=== PATIENT | male | born 1995 | race Caucasian/White ===

== ENCOUNTER 2025-03-11 17:53 | Emergency (ER) | payer BC, SELFPAY ==
[2025-03-11 17:55] VITALS: BP 168/105
[2025-03-11 18:12] LABS: Hematocrit 42.1 % (39.0-52.0); Hemoglobin 14.8 g/dL (13.0-18.0); Mean Corp Hgb Conc. 35.2 g/dL (33.0-37.0); Mean Corpuscular Volume 90.7 fL (80.0-94.0); Nucleated Red Blood Cells % 0 % (-); Platelet Count 274 10^3/uL (130-400); Red Cell Dist. Width 12.1 % (11.5-14.5)
[2025-03-11 18:35] LABS: ALT (SGPT) 37 U/L (0-50); AST (SGOT) 33 U/L (17-59); Albumin 5.1 g/dl (3.5-5.0); Alkaline Phosphatase 50 U/L (38-126); Blood Urea Nitrogen 21 mg/dl (9-20); Calcium 10.0 mg/dl (8.4-10.2); Carbon Dioxide 28 mmol/L (22-30); Chloride 103 mmol/L (98-107); Glucose 101 mg/dl (70-99); Potassium 4.4 mmol/L (3.5-5.1); Sodium 140 mmol/L (135-145); Total Protein 7.9 g/dl (6.3-8.2); eGFR > 60.00
[2025-03-11 18:39] VITALS: BP 144/81
[2025-03-11 18:44] VITALS: BMI 24.3
[2025-03-11 18:45] LABS: Troponin I < 0.012 ng/ml
--- NOTE | 2025-03-11 18:56 | ED.GENMED ---
History of Present Illness
General
Chief Complaint: Heart Rate Problem
Source: patient
Exam Limitations: none
Time Seen by Provider: 03/11/25 18:50
History of Present Illness
History of Present Illness:
29yoM with no significant past medical history presenting for evaluation of palpitations. Patient reports intermittent palpitations over the past 2 months. His palpitations seem to be worse when he is stressed. He is currently completing
prerequisite courses and is planning to attend nursing school. He has checked his smart watch while he has been symptomatic and it has always indicated normal sinus rhythm. He denies any associated chest pain, shortness of breath, dizziness,
syncope, leg swelling. Patient is currently training for a half marathon. He denies any symptoms with activity. He drinks 1 to 2 cups of coffee a day and drinks alcohol socially. He denies any family history of heart disease. He has never seen
a supervisor fine grading before.
Phy Exam
General Physical Exam
General Presentation: well appearing and no apparent distress
General Skin: warm and dry
General Habitus: normal
General Mental: alert
ENT Exam
ENT Exam: normocephalic
Cardiovascular Exam
Cardiovascular Exam: no edema, no murmur, normal peripheral pulses and tachycardia
Pulmonary Exam
Pulmonary Exam: lungs clear, no respiratory distress, no rales, no crackles, no rhonchi and no wheezing
Neurological Exam
Neurological Exam: alert
July Coma Scale
Eye Opening: Spontaneous
Verbal Response: Oriented
Motor Response: Obeys Commands
GCS Total Score: 15
Skin Exam
Skin Exam: normal color and warm/dry
Psychiatric Exam
Psychiatric Exam: normal mood/affect
Course
Orders/Labs/Results
Orders:
Orders
03/11/25 17:54
Electrocardiogram (*1) Urgent
Reason for Study: Chest Pain
EKG- Treatment ONCE
03/11/25 18:06
Complete Blood Count/With Diff Urgent
Comprehensive Metabolic Panel Urgent
TSH Reflex To Free T4 Urgent
Troponin I Urgent
Abnormal Lab Results
03/11/25
18:06
RBC 4.64 L 10^6/uL
(4.70-6.10)
MCH 31.9 H pg
(27.0-31.0)
BUN 21 H mg/dl
(9-20)
Glucose 101 H mg/dl
(70-99)
Albumin 5.1 H g/dl
(3.5-5.0)
03/11/25 18:06
03/11/25 18:06
Vital Signs
Initial and Last Documented VS:
Initial Vital Signs
Temp Pulse Resp BP Pulse Ox
98.4 F 103 18 168/105 100
03/11/25 17:55 03/11/25 17:55 03/11/25 17:55 03/11/25 17:55 03/11/25 17:55
Last Documented Vital Signs
Temp Pulse Resp BP Pulse Ox
98.5 F 91 13 141/81 100
03/11/25 18:44 03/11/25 19:34 03/11/25 19:34 03/11/25 19:34 03/11/25 18:56
MDM/Problems Addressed
Differential Diagnosis Includes:
29yoM here with palpitations x 2 months that are worse with stress. Denies CP/SOB. HR 103 in triage. He is well appearing in no distress. HR increased to 110-120 while we were speaking which improved to the 90s when I was out of the room. Sinus
rhythm on the monitor. Exam reassuring. Differential diagnosis includes but is not limited to: arrhythmia, thyroid dysfunction, electrolyte abnormality, doubt PE
Labs obtained in triage. Electrolytes, hemoglobin, TSH within normal limits. EKG confirms sinus tachycardia without ectopy and troponin WNL. No telemetry events during ED stay. No indication for hospitalization. He has an appt scheduled with his PCP
next week and was advised to discuss outpatient Holter monitor. He was discharged in stable condition.
*Pulse Oximetry
SaO2: 100
Oxygen Mode of Delivery: Room air
Patient hypoxic: no (100%)
*EKG
Interpreted by ED Provider?: Yes
EKG Intrepretation Date: 03/11/25
Heart Rate: 109
Rate: tachycardiac
Rhythm: sinus
[place]: normal axis
Interval: normal interval
QRS Pattern: normal QRS
Ischemia: non-specific ST changes
*Critical Care Note
Total Time (30-74mins, 75-104mins- exclusive of procedures): Not Applicable
ED Attending Note
-
Portions of this chart may have been created with voice recognition software.� Occasional wrong word or��sound alike� substitutions may have occurred due to the inherent limitations of voice recognition software.
Discharge Plan
Departure
Patient Disposition: Home (Routine Discharge)
Date of Disposition: 03/11/25
Time of Disposition: 19:31
Patient with high blood pressure during this ER visit?: Yes
Discharge Problem:
Palpitations, Sinus tachycardia
Instructions: Palpitations (DC)
Referrals:
Mike Kitchen DO [Family Provider, Family Practice]
Activity Restrictions/Additional Instructions:
Please follow-up with your family doctor next week as previously scheduled and discuss outpatient Holter monitor.
Return to the ER with any new or worsening symptoms.
Interventions
Interventions:
*Risk Screen - Suicide Last Done: 03/11/25 17:55
*General Assessment Last Done: 03/11/25 17:55
*Neglect/Abuse Screening Last Done: 03/11/25 19:45
*ED- Fall Risk Assessment Last Done: 03/11/25 19:45
*ED COVID-19 Vaccine History Last Done: 03/11/25 19:45
*Nursing Disposition Last Done: 03/11/25 19:45
ED- Cardiac Assessment Last Done: 03/11/25 18:41
ED- Pulmonary Assessment Last Done: 03/11/25 18:41
Discharge Date and Time
Discharge Date/Time: 03/11/25 19:45
Print Language: ROMANSH
[2025-03-11 19:00] VITALS: BP 134/79
[2025-03-11 19:34] VITALS: BP 141/81
== END 2025-03-11 19:45 | disposition home or self-care (01) ==
LOC: EMR 17:53
PROVIDERS: EMERGENCY PHYSICIAN Student in an Organized Health Care Education/Training Program; FAMILY PHYSICIAN Family Medicine
DX: R00.2 Palpitations (principal); R00.0 Tachycardia, unspecified
CPT/HCPCS: 99284; 80053; 84443; 84484; 85025; 93005

== ENCOUNTER → 2025-03-22 13:34 | Outpatient (REF) | payer OTHER, SELFPAY | LOC: RCS 13:34 | PROVIDERS: ATTENDING PHYSICIAN Physician Assistant Medical; FAMILY PHYSICIAN Family Medicine | DX: Z00.00 Encounter for general adult medical examination without abnormal findings (principal); R00.2 Palpitations | CPT/HCPCS: 93225; 93226 ==